=== PATIENT | male | born 1955 | race Caucasian/White ===

== ENCOUNTER 2023-12-12 03:15 | Emergency (ER) | payer BC, MEDICARE ==
[~2023-12-12] VITALS: Ht 177.8 cm; Wt 105.0 kg
[~2023-12-12 03:15] MED LIST: METF-1211 PO; SULF-261 PO
[2023-12-12 03:19] VITALS: TEMP 97.6
[2023-12-12 05:32] VITALS: BP 140/82; PULSE 78; RESP 16
== END 2023-12-12 06:00 | disposition home or self-care (01) ==
LOC: EMS 03:15
DX: S00.03XA Contusion of scalp, initial encounter (principal); S06.0X0A Concussion without loss of consciousness, initial encounter; E11.9 Type 2 diabetes mellitus without complications; F17.210 Nicotine dependence, cigarettes, uncomplicated; Z90.49 Acquired absence of other specified parts of digestive tract; W19.XXXA Unspecified fall, initial encounter; Y93.89 Activity, other specified; Y92.89 Other specified places as the place of occurrence of the external cause; Y99.8 Other external cause status
CPT/HCPCS: 70450; 70486; 99284